=== PATIENT | female | born 1990 | race Caucasian/White ===

== ENCOUNTER → 2020-05-07 10:40 | Outpatient (BNVA) | payer BC, SELFPAY | PROVIDERS: Family Provider Family Medicine; PCP Family Medicine; Visit Provider Family Medicine | DX: M79.645 Pain in left finger(s) (principal) | CPT/HCPCS: 73120 ==

== ENCOUNTER 2020-06-06 05:36 | Emergency (ER) | payer BC, SELFPAY ==
[2020-06-06 05:45] VITALS: BP 137/86; PULSE 79; RESP 18; TEMP 36.8; O2SAT 99; BMI 27.9
--- NOTE | 2020-06-06 06:20 | W.ED.DENTAL ---
HPI - Dental/Oral General: Chief complaint: Dental/Oral Stated complaint: Dental/Oral pain Time Seen by Provider: 06/06/20 06:00 History of Present Illness: HPI Narrative: 22-year-old female presents emergency room with complaint of tooth pain. Patient fractured a tooth a year ago, she had seen the dentist initially after it happened but has not seen one since. She is continuing to have tooth pain no fever. She has been taking anti-inflammatories for it unfortunately she taken as many as 2000 mg of ibuprofen in a single dose. MD Complaint: tooth pain Teeth map: 1. Onset (ago): year(s) Duration: intermittent Severity: moderate Relieving factors: NSAIDs Exacerbating factors: chewing, cold and heat Context: trauma (mechanism) Associated symptoms: Reports ear or mastoid pain and gum swelling; Denies fever(s), odynophagia, sore throat or tongue swelling Treatment prior to arrival: none Review of Systems Const: Denies: fever(s) ENMT: Reports: ear or mastoid pain; Denies: odynophagia Card: Denies: chest pain, edema, dyspnea on exertion or orthopnea Resp: Denies: dyspnea, productive cough or non-productive cough GI: Denies: abdominal pain, nausea, vomiting, hematemesis, coffee ground emesis, diarrhea, constipation, bloating, hematochezia or melena : Denies: flank pain, difficulty voiding, dysuria, urinary frequency or urinary urgency Skin/Breast: Denies: rash or pruritus All/Imm: Denies: tongue swelling PFSH ED PFSH: Medical History Eczema History of 2019 novel coronavirus disease (COVID-19) Surgical History History of cholecystectomy Family History Other CAD (coronary artery disease) Cancer Chronic kidney disease (CKD) Diabetes Social History Smoking and tobacco status: never smoked Alcohol intake: current Alcohol intake frequency: holidays/special occasions only Physical Exam Const: COMMON NORMALS: no acute distress GENERAL APPEARANCE: cooperative and comfortable ORIENTATION/CONSCIOUSNESS: Yes awake, Yes oriented to person, Yes oriented to place and Yes oriented to time HENMT: COMMON NORMALS: normocephalic, atraumatic, hearing grossly normal bilaterally, external ears normal, moist oral mucous membranes and oropharynx normal HEAD & SCALP: normocephalic and atraumatic EXTERNAL EAR: Yes external ears normal TEETH & GINGIVA IMAGES: 1. OTHER: Fractured teeth of swelling of the gumline no sign of abscess. Palpation of the neck there is no submandibular swelling no lymphadenopathy. Resp: COMMON NORMALS: normal respiratory effort, No retractions, No use of accessory muscles and clear to auscultation bilaterally AUSCULTATION: clear to auscultation bilaterally Cardio: COMMON NORMALS: regular rate, regular rhythm and No murmurs present (Cardio) RATE: regular rate RHYTHM: regular rhythm GI: COMMON NORMALS: Soft to palpation and No hepatosplenomegaly present AUSCULTATION: Yes normoactive bowel sounds PALPATION: Yes Soft to palpation, No Tenderness to palpation present (GI), No Guarding due to palpation present (GI) and Yes No hepatosplenomegaly present Extremity: COMMON NORMALS: normal to inspection, capillary refill normal, no clubbing, cyanosis or edema, no calf tenderness and no pedal edema Neuro: SENSORIUM/ORIENTATION: Yes oriented to person, Yes oriented to place and Yes oriented to time Skin: COMMON NORMALS: no rashes or lesions noted GENERAL SKIN EXAM: no rashes or lesions noted Course Vital Signs: Vital signs: Vital Signs Temperature 98.3 F 06/06/20 05:45 Pulse Rate 79 06/06/20 05:45 Respiratory Rate 18 06/06/20 05:45 Blood Pressure 137/86 06/06/20 05:45 Pulse Oximetry 99 06/06/20 05:45 MDM - Dental/Oral MDM Narrative: Medical decision making narrative: Start Augmentin twice daily Tylenol with codeine as needed follow-up with a dentist for definitive care as soon as she is able Discharge Plan Discharge Patient Disposition: Home Clinical Impression: Dental caries, Fracture of tooth Condition: Stable Prescriptions: New Augmentin 875-125 mg tablet 1 tab PO BID Qty: 14 RF: 0 acetaminophen-codeine 300-60 mg tablet 1 tab PO Q6H PRN (Reason: pain) Qty: 10 RF: 0 No Action multivitamin with minerals [Hair,Skin and Nails] Tablet 1 tab PO DAILY RF: 0 ferrous sulfate [FeroSul] 325 mg (65 mg iron) tablet 325 mg PO BID RF: 0 triamcinolone acetonide 0.1 % cream 1 applic TOPICAL BID Qty: 454 RF: 0 diclofenac potassium 50 mg tablet 50 mg PO BID Qty: 28 RF: 0 Discharge Orders: Discharge ED (Routine); Ordered 06/06/20 Ordered By: Farshad Berg Referrals: Melany Arellano DO [Primary Care Provider] - Discharge Diet: Usual diet Discharge Activity: Resume usual activity Coding Level of Care Code ED Treatment Coordinator for Robyn Perkins
[2020-06-06 06:35] VITALS: BP 130/84; PULSE 79; RESP 22; O2SAT 99
== END 2020-06-06 06:30 | disposition home or self-care (01) ==
PROVIDERS: Emergency Provider Family Medicine; PCP Family Medicine
DX: K02.9 Dental caries, unspecified (principal); S02.5XXA Fracture of tooth (traumatic), initial encounter for closed fracture; X58.XXXA Exposure to other specified factors, initial encounter
CPT/HCPCS: 12345; 99281; 99282